=== PATIENT | male | born 1990 | race Asian ===

== ENCOUNTER 2020-06-09 07:00 | Day surgery (SDC) | payer BC, SELFPAY ==
[~2020-06-09] VITALS: Ht 162.6 cm; Wt 72.6 kg
[2020-06-09] MEDS ORDERED: CEFAZOLIN SOD 1 GM in D5W 50 ML IV ONE (07:30)
[2020-06-09] MEDS ORDERED: fentaNYL CITRATE/PF 100 MCG/2 ML AMP IVP PRN ×2 (09:00)
[2020-06-09] MEDS ORDERED: KETOROLAC TROMETHAMINE 30 MG VIAL IVP PRN (09:00)
[2020-06-09] MEDS ORDERED: ONDANSETRON HCL 4 MG/2 ML VIAL IVP PRN (09:00)
[2020-06-09] MEDS ORDERED: POLYMYXIN 500,000/BACIT.10,000 UNITS in NS IRR 1 L IR ONE (09:12)
[2020-06-09] MEDS ORDERED: D5/0.45 NS 1,000 ML IV SCH (09:20)
[2020-06-09] MEDS ORDERED: HYDROcodone/ACETAMIN 5-325 MG TAB (NORCO/ VICODIN) PO PRN ×2 (09:30)
[2020-06-09] MEDS ORDERED: MIDAZOLAM HCL 5 MG/ML VIAL (VERSED) IV ONE (09:35)
[2020-06-09] MEDS ORDERED: PROPOFOL 200MG/ 20ML VIAL (DIPRIVAN) IV ONE (09:35)
[2020-06-09] MEDS ORDERED: fentaNYL CITRATE/PF 100 MCG/2 ML AMP ONE (09:35)
[2020-06-09] MEDS ORDERED: LR 1,000 ML IV.SOLN IV ONE (09:35)
[2020-06-09] MEDS ORDERED: SEVOFLURANE 15 MIN GAS INH ONE (09:35)
[2020-06-09 10:35] VITALS: BP_SYST 130
== END 2020-06-09 11:45 | disposition home or self-care (01) ==
LOC: SMU 07:00 → SDS 07:00
PROVIDERS: ATTEND Colon & Rectal Surgery
DX: K42.0 Umbilical hernia with obstruction, without gangrene (principal); E78.5 Hyperlipidemia, unspecified; Z11.59 Encounter for screening for other viral diseases; Z79.899 Other long term (current) drug therapy
CPT/HCPCS: 49587; C1781; J0690; J2250; J2704; J3010; J7060; J7120; U0003